=== PATIENT | female | born 1970 | race Caucasian/White ===

== ENCOUNTER 2017-07-14 16:57 | Emergency (ER) | payer BC ==
[~2017-07-14] VITALS: Ht 170.2 cm; Wt 104.0 kg
[~2017-07-14 16:57] MED LIST: FLEXERIL5 MG PO; IRON325 M1 PO; MOTRIN600 MG PO; MULTIVITAMIN1 EACH PO; STELAZINE5 MG PO; ZOLOFT50 MG PO
[2017-07-14] MEDS ORDERED: NAPROXEN500 MG PO (19:36)
[2017-07-14] MEDS ORDERED: ULTRAM50 MG PO (19:36)
[2017-07-14 20:10] VITALS: BP 130/78
== END 2017-07-14 20:11 | disposition home or self-care (01) ==
LOC: EME 16:57
DX: M79.605 Pain in left leg (principal); M79.604 Pain in right leg; F32.9 Major depressive disorder, single episode, unspecified; Z88.0 Allergy status to penicillin
CPT/HCPCS: 99281; 99284; J8540